=== PATIENT | male | born 1985 | race Caucasian/White ===

== ENCOUNTER 2017-05-07 19:11 | Emergency (ER) | payer OTHER ==
[~2017-05-07] VITALS: Ht 188 cm; Wt 202.8 kg
[~2017-05-07 19:11] MED LIST: AVALIDE 300-12.1 TAB; AVAPRO150 MG; DICY20TA PO; PROTONIX40 MG PO; TOPROL XL25 M1; ZANTAC300 MG PO; ZOFRAN4 MG PO
== END 2017-05-07 22:50 | disposition home or self-care (01) ==
LOC: ER 19:11
DX: K29.70 Gastritis, unspecified, without bleeding (principal)

== ENCOUNTER 2017-08-31 05:37 | Emergency (ER) | payer OTHER ==
[~2017-08-31] VITALS: Ht 190.5 cm; Wt 176.9 kg
== END 2017-08-31 19:23 | disposition home or self-care (01) ==
LOC: ER 05:37
DX: M54.5 Low back pain (principal); M54.2 Cervicalgia; R20.2 Paresthesia of skin

== ENCOUNTER 2018-03-26 17:23 | Emergency (ER) | payer OTHER ==
[~2018-03-26] VITALS: Ht 188 cm; Wt 163.3 kg
== END 2018-03-26 21:33 | disposition home or self-care (01) ==
LOC: ER 17:23
DX: N39.0 Urinary tract infection, site not specified (principal); M54.2 Cervicalgia

== ENCOUNTER 2019-03-22 23:51 | Emergency (ER) | payer OTHER ==
[~2019-03-22] VITALS: Ht 190.5 cm; Wt 167.4 kg
[2019-03-23] MEDS ORDERED: ATACAND32 MG (00:13)
[2019-03-23] MEDS ORDERED: PYRIDIUM DS200 MG PO (02:36)
[2019-03-23] MEDS ORDERED: KEFLEX500 MG PO (02:36)
== END 2019-03-23 02:42 | disposition home or self-care (01) ==
LOC: ER 23:51
DX: N39.0 Urinary tract infection, site not specified (principal); R31.0 Gross hematuria